=== PATIENT | female | born 1970 | race Caucasian/White ===

== ENCOUNTER → 2016-09-09 08:33 | Outpatient (CLI) | payer BC | END | disposition home or self-care (01) | LOC: D.RAD 09-07 09:30 | DX: K27.9 Peptic ulcer, site unspecified, unspecified as acute or chronic, without hemorrhage or perforation (principal) ==

== ENCOUNTER 2016-10-07 06:30 | Day surgery (SDC) | payer BC ==
[2016-10-06 10:05] LABS: HEMATOCRIT 46.1 % (36.0-48.0); HEMOGLOBIN 15.4 g/dL (12-16); MCH 29.1 pg (26.0-34.0); MCHC 33.4 g/dL (31.0-37.0); MEAN PLATELET VOLUME 11.3 fL (7.4-10.4); RBC 5.3 10x6/uL (4.00-5.40); RDW 13.4 % (11.5-14.5); WBC 6.6 10x3/uL (4.8-10.8)
[2016-10-06 10:12] LABS: ANION GAP 8.9 mmol/L (8-16); CALCIUM 9.6 mg/dL (8.5-10.1); CARBON DIOXIDE 32.3 mmol/L (21.0-32.0); CREATININE - SERUM 0.9 mg/dL (0.6-1.3); POTASSIUM - SERUM 4.2 mmol/L (3.5-5.1)
[~2016-10-07] VITALS: Ht 160 cm; Wt 76.2 kg
[~2016-10-07 06:30] MED LIST: CORGARD20 MG PO; DEXILANT60 MG PO; HYDROCHLOROTHIA50 MG PO; K-DUR20 MEQ PO; PRAVACHOL40 MG PO; XANAX0.25 MG PO
[2016-10-07 08:32] VITALS: BP 105/73; Ht 160 cm; Wt 76.2 kg
[2016-10-07] MEDS ORDERED: HYDROCODON-ACE1 EAC7 PO (11:16)
--- NOTE | 2016-10-07 15:52 | NUR ---
1430--PT VOIDS WITHOUT DIFFICULTY, IV DC'D. CHERI PEREZ 1446--DISCHARGE INSTRUCTIONS AND PRESCRIPTION FOR PAIN MEDS GIVEN, PT VERBALIZES UNDERSTANDING. PT OFF UNIT VIA WC. CHERI PEREZ
--- NOTE | 2016-10-07 19:25 | OP ---
PATIENT NAME: LISA DUGAN MEDICAL RECORD: [id number] :68 LOCATION:D[facility] ADMISSION DATE: SURGEON: ARA CONDE MD DATE OF OPERATION: 10/07/2016 SURGEON: Ara Conde MD PREOPERATIVE DIAGNOSES: 1. Calculous of the gallbladder without cholecystitis. 2. Right upper quadrant pain. 3. Gastroesophageal reflux disease. POSTOPERATIVE DIAGNOSES: 1. Calculous of the gallbladder without cholecystitis. 2. Right upper quadrant pain. 3. Gastroesophageal reflux disease. PROCEDURE PERFORMED: Laparoscopic cholecystectomy. ANESTHESIA: General. COMPLICATIONS: None. SPECIMENS: Gallbladder. Case was clean contaminated. ESTIMATED BLOOD LOSS: 20 cc. OPERATIVE COURSE: After consent was obtained, the patient was taken to the operating room and placed in the supine position on the operating table. Next, general anesthesia was given via endotracheal intubation after a timeout was taken to confirm the correct patient and procedure. The abdomen was then prepped and draped in typical sterile fashion. Local anesthetic was injected just above the umbilicus. A stab incision was made with 11-blade scalpel. Using a 5-mm bladeless optical trocar, the abdomen was entered under direct laparoscopic vision. Adequate pneumoperitoneum was achieved. The abdominal cavity was inspected. No evidence of bowel injury. No evidence of bleeding. At this time, the patient was placed in the steep reverse Trendelenburg position. All remaining trocars were then placed after the administration of local anesthetic, two 5-mm trocars in the right upper quadrant and 11-mm trocar in the subxiphoid position. The fundus of the gallbladder was then grasped and retracted cephalad. The infundibulum was grasped and retracted laterally. The peritoneum was incised using electrocautery. Blunt dissection was performed until the critical view was obtained. The cystic duct lateral, cystic artery medial, 3 clips were placed in the proximal cystic duct, 1 clip distal and 2 clips were placed in the proximal cystic artery. The duct and artery were then transected with laparoscopic Metzenbaum scissors. The main portion of the gallbladder was then dissected off the liver bed using electrocautery. Once complete, it was grasped with the tenaculum and removed through the 11-mm trocar and sent for permanent pathology. At this time, the operative field was copiously irrigated and suctioned. Careful attention was paid to the liver bed for hemostasis, which was obtained using electrocautery. The clips were inspected. The cystic duct had [address] in the cystic duct, artery had [address] At this time, the abdominal cavity was copiously irrigated OPERATIVE REPORT [id number] LISA DUGAN and suctioned the remaining portion. The abdominal cavity was inspected. No evidence of bowel injury. No evidence of bleeding. No evidence of bile leak. Next, our remaining instruments were removed. The abdomen was desufflated. Trocars removed. Skin was closed with 4-0 Monocryl, Mastisol and Steri-Strips. At the end of the case, all needle and instrument counts were correct. No complications occurred. The patient was extubated and transferred to the PACU in stable condition. TRANSINT:[id number] Voice Confirmation ID: [id number] DOCUMENT ID: [id number] ARA CONDE MD at 1925 CC: [id number] DICTATION DATE: 10/07/16 1115 PRESS TENDER LONG GOODS: 10/07/16 1740 [facility] 10/07/16 [facility] [address] [place] [address]
== END 2016-10-07 14:45 | disposition home or self-care (01) ==
LOC: D.OPS 06:30 → D.PAN 10:00 → D.OPS 10:00
PROVIDERS: Anesthesiology
DX: K80.10 Calculus of gallbladder with chronic cholecystitis without obstruction (principal); K21.9 Gastro-esophageal reflux disease without esophagitis

== ENCOUNTER 2016-11-06 03:49 | Emergency (ER) | payer BC ==
[2016-10-07 08:32] VITALS: BMI 29.8
[~2016-11-06 03:49] MED LIST changes: +HYDROCODON-ACE1 EAC7 PO
[2016-11-06 04:37] LABS: APPEARANCE CLEAR (CLEAR); BILIRUBIN NEGATIVE (NEGATIVE); COLOR YELLOW (YELLOW); GLUCOSE NEGATIVE (NEGATIVE); KETONE NEGATIVE (NEGATIVE); LEUKOCYTE ESTERASE NEGATIVE (NEGATIVE); NITRITE NEGATIVE (NEGATIVE); PROTEIN NEGATIVE (NEGATIVE); SPECIFIC GRAVITY 1.015 (1.005-1.020); UROBILINOGEN NORMAL (NORMAL)
[2016-11-06 04:37] LABS: BASOPHILS 0.3 % (0-2); EOSINOPHILS 6.6 % (0-7); HEMOGLOBIN 14.8 g/dL (12-16); IMMATURE GRANULOCYTES 0.3 % (0-5); LYMPHOCYTES 22.2 % (15-50); MCHC 33.6 g/dL (31.0-37.0); MCV 86.3 fL (80.0-100.0); MEAN PLATELET VOLUME 11.2 fL (7.4-10.4); MONOCYTES 7.2 % (2-11); NEUTROPHILS 63.4 % (40-80); PLATELET COUNT 181 10x3/uL (130-400); RDW 13.3 % (11.5-14.5); WBC 9.3 10x3/uL (4.8-10.8)
[2016-11-06 04:41] LABS: AMYLASE - SERUM 46 U/L (25-115); LIPASE 176 U/L (73-393)
[2016-11-06 05:04] LABS: ALBUMIN 3.8 g/dL (3.4-5.0); ANION GAP 13.2 mmol/L (8-16); BILIRUBIN - TOTAL 0.29 mg/dL (0.2-1.3); CALCIUM 9.3 mg/dL (8.5-10.1); CARBON DIOXIDE 25.6 mmol/L (21.0-32.0); CREATININE - SERUM 0.9 mg/dL (0.6-1.3); MAGNESIUM - SERUM 1.9 mg/dL (1.8-2.4); POTASSIUM - SERUM 3.8 mmol/L (3.5-5.1); PROTEIN - SERUM 7.2 g/dL (6.4-8.2)
== END 2016-11-06 05:50 | disposition home or self-care (01) ==
LOC: D.ER 03:49
PROVIDERS: Emergency Medicine
DX: R10.9 Unspecified abdominal pain (principal); I10 Essential (primary) hypertension

== ENCOUNTER 2016-11-15 11:06 | Inpatient (IN) | payer BC ==
[~2016-11-15] VITALS: Ht 162.6 cm; Wt 70.3 kg
[2016-11-15 11:52] LABS: BASOPHILS 0.3 % (0-2); EOSINOPHILS 2.9 % (0-7); HEMATOCRIT 47.4 % (36.0-48.0); HEMOGLOBIN 16.3 g/dL (12-16); IMMATURE GRANULOCYTES 0.3 % (0-5); LYMPHOCYTES 15.7 % (15-50); MCH 29.3 pg (26.0-34.0); MCHC 34.4 g/dL (31.0-37.0); MCV 85.1 fL (80.0-100.0); MEAN PLATELET VOLUME 10.7 fL (7.4-10.4); MONOCYTES 5.1 % (2-11); NEUTROPHILS 75.7 % (40-80); PLATELET COUNT 226 10x3/uL (130-400); RBC 5.57 10x6/uL (4.00-5.40); RDW 13.3 % (11.5-14.5)
[2016-11-15 14:28] LABS: ALBUMIN 4.2 g/dL (3.4-5.0); ANION GAP 13.8 mmol/L (8-16); BILIRUBIN - TOTAL 0.47 mg/dL (0.2-1.3); CALCIUM 9.6 mg/dL (8.5-10.1); CARBON DIOXIDE 30.1 mmol/L (21.0-32.0); CREATININE - SERUM 0.9 mg/dL (0.6-1.3); POTASSIUM - SERUM 3.9 mmol/L (3.5-5.1); PROTEIN - SERUM 7.7 g/dL (6.4-8.2)
[2016-11-15 19:00] VITALS: BP 119/65
[2016-11-15] MEDS ORDERED: NORCO 7.5/325 T1 TA1 PO (21:02)
[2016-11-16] VITALS: BP 116/77
[2016-11-16 04:00] VITALS: BP 116/72
[2016-11-16 05:33] LABS: BASOPHILS 0.2 % (0-2); EOSINOPHILS 2.1 % (0-7); HEMATOCRIT 41.4 % (36.0-48.0); HEMOGLOBIN 13.7 g/dL (12-16); IMMATURE GRANULOCYTES 0.2 % (0-5); MCH 28.8 pg (26.0-34.0); MCHC 33.1 g/dL (31.0-37.0); MONOCYTES 8.5 % (2-11); PLATELET COUNT 206 10x3/uL (130-400); RBC 4.76 10x6/uL (4.00-5.40); RDW 13.5 % (11.5-14.5)
[2016-11-16 05:39] LABS: WBC 8.2 10x3/uL (4.8-10.8)
[2016-11-16 05:45] LABS: CALC OSMOLALITY 281 mosm/kg (275-300); CALCIUM 8.9 mg/dL (8.5-10.1); CARBON DIOXIDE 29.8 mmol/L (21.0-32.0); CHLORIDE - SERUM 104 mmol/L (98-107); CREATININE - SERUM 0.8 mg/dL (0.6-1.3); GLUCOSE 105 mg/dL (74-106); POTASSIUM - SERUM 3.7 mmol/L (3.5-5.1); SODIUM 141 mmol/L (136-145); UREA NITROGEN 15 mg/dL (7-18); eGFR NON AFRICAN AMERICAN 81 mL/min (90-120)
[2016-11-16 06:47] LABS: ERYTHROCYTE SEDIMENTATION RATE 6 mm/hr (0-20)
--- NOTE | 2016-11-16 07:50 | NUR ---
SITTING UP, DENIES NEEDS, REQUESTED TO BE UNHOOKED FROM IV TO SHOWER, BED LOWEST POSITION, CALL LIGHT IN REACH, WILL CONTINUE TO MONITOR
[2016-11-16 10:16] VITALS: BP 105/62
[2016-11-16 12:09] VITALS: BP 110/77
--- NOTE | 2016-11-16 14:29 | NUR ---
VISITING WITH COMPANY. DENIES ANY NEEDS AT THIS TIME.
[2016-11-16 15:25] VITALS: Ht 162.6 cm; Wt 70.3 kg
[2016-11-16 15:57] VITALS: BP 97/59
[2016-11-16 19:00] VITALS: BP 110/66
[2016-11-17] VITALS: BP 98/61
[2016-11-17 04:00] VITALS: BP 121/65
--- NOTE | 2016-11-17 06:02 | NUR ---
PT HAS BEEN RESTING THIS SHIFT WITH NO GAS NOTED OR VOICED. STATES HAS NOT USED SUPERVISING NURSE AT ALL-NO PAIN. CALL LIGHT IN REACH AND FAMILY MEMBER AT BEDSIDE
[2016-11-17 06:05] LABS: CALC OSMOLALITY 286 mosm/kg (275-300); CALCIUM 8.2 mg/dL (8.5-10.1); CARBON DIOXIDE 27.5 mmol/L (21.0-32.0); CHLORIDE - SERUM 109 mmol/L (98-107); CREATININE - SERUM 0.8 mg/dL (0.6-1.3); GLUCOSE 114 mg/dL (74-106); POTASSIUM - SERUM 3.5 mmol/L (3.5-5.1); SODIUM 144 mmol/L (136-145); eGFR NON AFRICAN AMERICAN 81 mL/min (90-120)
[2016-11-17 06:06] LABS: BASOPHILS 0.2 % (0-2); EOSINOPHILS 4.7 % (0-7); HEMATOCRIT 39.9 % (36.0-48.0); IMMATURE GRANULOCYTES 0.2 % (0-5); LYMPHOCYTES 30.4 % (15-50); MCH 28.6 pg (26.0-34.0); MCHC 32.6 g/dL (31.0-37.0); MCV 87.9 fL (80.0-100.0); MEAN PLATELET VOLUME 10.8 fL (7.4-10.4); MONOCYTES 9.1 % (2-11); NEUTROPHILS 55.4 % (40-80); PLATELET COUNT 174 10x3/uL (130-400); RBC 4.54 10x6/uL (4.00-5.40); RDW 13.5 % (11.5-14.5)
[2016-11-17 06:10] LABS: UREA NITROGEN 9 mg/dL (7-18)
[2016-11-17 06:28] LABS: WBC 5.3 10x3/uL (4.8-10.8)
--- NOTE | 2016-11-17 07:00 | NUR ---
PT REC'D FROM [facility]. RESTING IN BED WATCHING TV. AAOX4. NO COMPLAINTS OF PAIN. BOWEL SOUNDS HYPOACTIVE X4 QUADRANTS. AWAITING STOOL SPECIMEN. EXPLAINED TO PT TO CALL ONCE SHE HAD ONE AND WE WOULD COLLECT IT. NO QUESTIONS OR CONCERNS VOICED AT THIS TIME. PIV TO R AC FREE OF REDNESS AND SWELLING. BED LOW, CALL LIGHT IN REACH, DENEIS NEEDS. CPOC.
[2016-11-17 08:24] VITALS: BP 121/64
[2016-11-17 09:15] LABS: ANA REFLEX - DIRECT Negative (Negative)
--- NOTE | 2016-11-17 10:16 | NUR ---
NEW BAG OF FLUID HUNG PER JUL. PROBIOTIC ADMINISTERED PER MAR WELL. NO COMPLAINTS. BED LOW, CALL LIGHT IN REACH, DENIES NEEDS. CPOC.
--- NOTE | 2016-11-17 12:37 | NUR ---
SITTING UP IN BED WATCHING TV. DENIES NEEDS OR PAIN AT THIS TIME. BED LOW, CL IN REACH.
[2016-11-17 12:40] VITALS: BP 127/80
--- NOTE | 2016-11-17 13:11 | NUR ---
Patient Name: LISA DUGAN Admission Status: ER Accout number: [id number] Admission Date: 11-15-2016 : 1970 Admission Diagnosis:NAUSEA WITH VOMITING, UNSPECIFIED Attending: RUBI Current LOS: 2 Anticipated DC Date: 11-18-2016 Planned Disposition: Home Primary Insurance: [employer] TRUE BLUE PPO Discharge Planning Comments: CM MET WITH PATIENT AND SPOUSE (TORIE) REGARDING D/C NEEDS AND PLANS. PATIENT STATED HER SPOUSE WILL DRIVE HER HOME AT DISCHARGE. PATIENT STATED THERE ARE NO STEPS TO ENTER HOME BUT THERE ARE 2 STAIRCASES W/RAILS INSIDE HOME. PATIENT IS INDEPENDENT WITH HER CARE AND HAS NO DME AT HOME. PATIENTS PCP IS DR. ZIMMERMAN AND PHARMACY IS [facility]. PATIENT DID NOT WANT HOME HEALTH AT DISCHARGE. CM WILL CONTINUE TO FOLLOW PATIENT WITH D/C NEEDS AND PLANS. PCP DR. ZIMMERMAN [facility]- [phone] TORIE (SPOUSE) [phone] Planning Intern: Linda Marroquin Is the patient Alert and Oriented? Yes 0 * How many steps to enter\exit or inside your home? 2 FLIGHTS 0 * PCP DR. ZIMMERMAN 0 * Pharmacy [facility] 0 * Preadmission Environment Home with Family 0 * ADLs Independent 0 * List name and contact numbers for known caregivers / representatives who currently or will assist patient after discharge: TORIE (SPOUSE) [phone] 0 * Community resources currently utilized None 0 * Additional services required to return to the preadmission environment? Yes 0 * Can the patient safely return to the preadmission environment? Yes 0 * Has this patient been hospitalized within the prior 30 days at any hospital? No 0 Grand Total: 0
--- NOTE | 2016-11-17 16:00 | NUR ---
IV TO R AC DC'D DUE TO SWELLING AND LEAKAGE AROUND INSERTION SITE. DC'D WIHT CATHETER INTACT. PRESSURE AND DRESSING APPLIED. WILL ATTEMPT TO RESITE.
[2016-11-17 16:39] VITALS: BP 126/74
--- NOTE | 2016-11-17 17:30 | NUR ---
X3 ATTEMPTS TO RESITE PIV. UNSUCCESSFUL. NIGHT NURSE WILL BE NOTIFIED.
[2016-11-17 19:00] VITALS: BP 145/87
--- NOTE | 2016-11-17 19:02 | NUR ---
Received patient ambulating in hallway with family. Denies pain or discomfort at this time. Alert and oriented x 4, has no PIV. Offgoing staff reported PIV had become symptomatic and was removed. Day shift have attempted x 3 to restart PIV but each time have been unsuccessful. Next IV antibiotic and protonix is due @0215. Denies need for IV Dilaudid at this time.
--- NOTE | 2016-11-17 20:10 | NUR ---
PIV #20 has been resited in right wrist, IV infusing of D5 1/2NS & 10KCl, no signs of infection or infiltration at this time.
--- NOTE | 2016-11-17 20:30 | NUR ---
PIV that had been resited by Charge Nurse is now leaking sanguinous fluid aroun insertion site. Patient is now complaining of severe pain at site. A second RN came to evaluate site, has infiltrated, PIV removed, catheter intact.
--- NOTE | 2016-11-17 23:00 | NUR ---
Have been unable to resite PIV. Notified Huc Ob of same and aware that patient has no IV medication due until 214. Patient continues to deny pain or discomfort, continues to deny need to have Dilaudid POWDER COMPOUNDER running at this time.
[2016-11-18] VITALS (8 sets, daily range): BP systolic 110–131; BP diastolic 67–89
--- NOTE | 2016-11-18 04:05 | NUR ---
It Security Engineer is sending a nurse from ICU to resite PIV. Patient is a hard stick and wants to only be stuck one more time "by an expert".
[2016-11-18 06:18] LABS: BASOPHILS 0.3 % (0-2); EOSINOPHILS 5.2 % (0-7); HEMATOCRIT 39.7 % (36.0-48.0); IMMATURE GRANULOCYTES 0.3 % (0-5); LYMPHOCYTES 30.5 % (15-50); MCH 28.7 pg (26.0-34.0); MCHC 32.7 g/dL (31.0-37.0); MCV 87.6 fL (80.0-100.0); MEAN PLATELET VOLUME 11.1 fL (7.4-10.4); MONOCYTES 8.2 % (2-11); NEUTROPHILS 55.5 % (40-80); PLATELET COUNT 180 10x3/uL (130-400); RBC 4.53 10x6/uL (4.00-5.40); RDW 13.5 % (11.5-14.5); WBC 5.7 10x3/uL (4.8-10.8)
[2016-11-18 06:55] LABS: CALC OSMOLALITY 286 mosm/kg (275-300); CALCIUM 8.9 mg/dL (8.5-10.1); CARBON DIOXIDE 26.3 mmol/L (21.0-32.0); CHLORIDE - SERUM 109 mmol/L (98-107); CREATININE - SERUM 0.7 mg/dL (0.6-1.3); GLUCOSE 100 mg/dL (74-106); POTASSIUM - SERUM 3.7 mmol/L (3.5-5.1); SODIUM 145 mmol/L (136-145); UREA NITROGEN 8 mg/dL (7-18); eGFR NON AFRICAN AMERICAN > 90 mL/min (90-120)
--- NOTE | 2016-11-18 07:00 | NUR ---
PT REC'D FROM [facility]. RESTING IN BED WATCHING TV AT BEDSIDE. AAOX4. NO IV ACCESS CURRENTLY. ANA NUNN IV ACCESS NURSE, AWARE. BOWEL SOUNDS HYPOACTIVE X4 QUADRANTS. NO COMPLAINTS OF PAIN. BED LOW, CALL LIGHT IN REACH, DENIES NEEDS. CPOC.
--- NOTE | 2016-11-18 08:30 | NUR ---
ARLINE RN IV ACCESS NURSE, AT BEDSIDE. NEW IV RESITED TO L HAND WITH 22 GUAGE CATHETER. VERY MUCH APPRECIATE HER HELP!
--- NOTE | 2016-11-18 08:45 | NUR ---
GI LAB ON PHONE TO LET ME KNOW WHEN EGD WOULD BE APPROXIMATELY. STATED I COULD PRE-OP AROUND 9.
--- NOTE | 2016-11-18 08:50 | NUR ---
PT PREOP'D AT THIS TIME. NEW TUBING HUNG. ASSISTED WITH PUTTING ON GOWN. BED LOW, CALL LIGHT IN REACH, DENIES NEEDS. CPOC.
--- NOTE | 2016-11-18 11:38 | NUR ---
PT REC'D BACK TO ROOM FROM GI LAB. AAOX4. NO COMPLAINTS OF PAIN. VSS. AND MOTHER AT BEDSIDE. DILAUDID TOPOGRAPHICAL SURVEYOR DC'D. BED LOW, CALL LIGHT IN REACH, DENIES NEEDS. CPOC.
--- NOTE | 2016-11-18 13:33 | NUR ---
DR. MEJÍA AT BEDSIDE DISCUSSING POC.
[2016-11-18] MEDS ORDERED: TUMS X-STR300 MG PO (13:38)
[2016-11-18] MEDS ORDERED: NORCO 7.5/325 T1 TA1 PO (13:38)
--- NOTE | 2016-11-18 13:55 | NUR ---
PT RESTING IN BED WITH NO COMPLAINTS OF PAIN OR DISCOMFORT AT THIS TIME. PT AWAITING DISCHARGE. BED IN LOW POSITION AND CALL LIGHT WITHIN REACH. WILL CONTINUE TO MONITOR.
--- NOTE | 2016-11-18 14:56 | NUR ---
CM REASSESSMENT NOTE: PATIENT IS DISCHARGING HOME TODAY/ DRIVING HER. PATIENT REF. HOME HEALTH AND HAD NO OTHER NEEDS FOR DISCHARGE.
--- NOTE | 2016-11-18 15:35 | NUR ---
DISCHARGE INSTRUCTIONS DISCUSSED WITH PT AND FAMILY AT THIS TIME. PIV TO R AC DC'D WITH CATHETER INTACT. NO QUESTIONS OR CONCERNS VOICED. EXPLAINED THAT PRESCRIPTIONS HAD ALREADY BEEN CALLED IN. ESCORTED OUT VIA WC.
== END 2016-11-18 15:36 | disposition home or self-care (01) | DRG 392 ==
LOC: D.ER 11:06 → D.MS 18:01
PROVIDERS: Emergency Medicine; Family Medicine; Internal Medicine Gastroenterology; Surgery; ADMIT Family Medicine
PROC: 0DB68ZX Excision of Stomach, Via Natural or Artificial Opening Endoscopic, Diagnostic (ICD-10-PCS; 2016-11-18)
PROC: 0DB48ZX Excision of Esophagogastric Junction, Via Natural or Artificial Opening Endoscopic, Diagnostic (ICD-10-PCS; 2016-11-18)
PROC: 0DB98ZX Excision of Duodenum, Via Natural or Artificial Opening Endoscopic, Diagnostic (ICD-10-PCS; principal; 2016-11-18 09:30)
DX: K52.9 Noninfective gastroenteritis and colitis, unspecified (principal); K22.10 Ulcer of esophagus without bleeding; K22.4 Dyskinesia of esophagus; I10 Essential (primary) hypertension; K21.0 Gastro-esophageal reflux disease with esophagitis; K29.60 Other gastritis without bleeding

== ENCOUNTER → 2017-01-06 08:48 | Outpatient (CLI) | payer BC ==
[2016-11-16 15:25] VITALS: BMI 26.6
[~2017-01-06 08:48] MED LIST changes: +NORCO 7.5/325 T1 TA1 PO; +TUMS X-STR300 MG PO
== END | disposition home or self-care (01) ==
LOC: D.RAD 08:48
DX: R10.13 Epigastric pain (principal)

== ENCOUNTER 2017-03-10 05:11 | Day surgery (SDC) | payer BC ==
[2017-03-09 15:06] LABS: HEMATOCRIT 42.2 % (36.0-48.0); HEMOGLOBIN 14.4 g/dL (12-16); MCHC 34.1 g/dL (31.0-37.0); MCV 85.1 fL (80.0-100.0); MEAN PLATELET VOLUME 10.6 fL (7.4-10.4); RBC 4.96 10x6/uL (4.00-5.40); RDW 13.2 % (11.5-14.5); WBC 6.4 10x3/uL (4.8-10.8)
[2017-03-09 16:16] LABS: ANION GAP 11.5 mmol/L (8-16); CALCIUM 9.1 mg/dL (8.5-10.1); CARBON DIOXIDE 31.5 mmol/L (21.0-32.0); CREATININE - SERUM 0.9 mg/dL (0.6-1.3)
[~2017-03-10 05:11] MED LIST changes: +PEPCID40 MG PO; +ZANTAC300 MG PO
[2017-03-10 08:28] VITALS: BP 112/75; BMI 29.9
--- NOTE | 2017-03-10 13:30 | NUR ---
RECIEVED TO ROOM 2213 FROM RECOVERY ROOM VIA BED. IV TO R WRIST PATENT. ABDOMINAL INCISIONS X 5 WITH STERI STRIPS INTACT. SCD'S IN USE TO BILAT LEGS. O2 4L NC IN USE. DROWSY BUT AWAKENS EASILY TO VERBAL STIMULI.
[2017-03-10 13:32] VITALS: BP 136/71
[2017-03-10 13:35] VITALS: BP 136/71; BMI 29.9
--- NOTE | 2017-03-10 13:48 | NUR ---
CITY EDITOR MORPHINE 1-10-10 SETUP FOR PAIN CONTROL. FAMILY AT BEDSIDE.
--- NOTE | 2017-03-10 16:35 | NUR ---
AMBULATED IN HALLWAY WITH STAFF AROUND NURSE'S UNIT. INCENTIVE SPIROMETRY GIVEN TO PATIENT WITH INSTRUCTION.
--- NOTE | 2017-03-10 17:00 | NUR ---
AMBULATING IN HALLWAY WITH .
--- NOTE | 2017-03-10 18:22 | NUR ---
TOLERATING CLEAR LIQUID DIET AT THIS TIME. DENIES ANY NEEDS AT PRESENT.
[2017-03-10 20:00] VITALS: BP 121/86
--- NOTE | 2017-03-10 20:05 | NUR ---
REC'D. WALKING WITH IN HALLWAY TOLERATING WELL.WILL CONTINUE TO MONITOR FOR ANY CHGES. AND FOLLOW CURRENT PLAN OF CARE.
[2017-03-11] VITALS: BP 114/71
--- NOTE | 2017-03-11 02:00 | NUR ---
PT RESTING IN BED WITH NO DISTRESS. RESPIRATIONS EVEN AND UNLABORED. SIDE RAILS X 2. BED LOW. CALL LIGHT IN REACH.
[2017-03-11 04:00] VITALS: BP 110/56
[2017-03-11 05:15] LABS: BASOPHILS 0.1 % (0-2); EOSINOPHILS 0.3 % (0-7); HEMATOCRIT 36.3 % (36.0-48.0); HEMOGLOBIN 12.2 g/dL (12-16); IMMATURE GRANULOCYTES 0.2 % (0-5); LYMPHOCYTES 20.5 % (15-50); MCH 29.4 pg (26.0-34.0); MCHC 33.6 g/dL (31.0-37.0); MEAN PLATELET VOLUME 10.6 fL (7.4-10.4); MONOCYTES 6.6 % (2-11); NEUTROPHILS 72.3 % (40-80); PLATELET COUNT 164 10x3/uL (130-400); RBC 4.15 10x6/uL (4.00-5.40); RDW 13.6 % (11.5-14.5)
[2017-03-11 05:21] LABS: MCV 87.5 fL (80.0-100.0); WBC 8.8 10x3/uL (4.8-10.8)
[2017-03-11 05:39] LABS: ALBUMIN 3.1 g/dL (3.4-5.0); ALKALINE PHOSPHATASE 76 U/L (46-116); ALT (SGPT) 92 U/L (10-68); BILIRUBIN - TOTAL 0.32 mg/dL (0.2-1.3); CALC OSMOLALITY 282 mosm/kg (275-300); CALCIUM 8.4 mg/dL (8.5-10.1); CARBON DIOXIDE 29.7 mmol/L (21.0-32.0); CHLORIDE - SERUM 106 mmol/L (98-107); CREATININE - SERUM 0.8 mg/dL (0.6-1.3); GLUCOSE 107 mg/dL (74-106); PROTEIN - SERUM 5.8 g/dL (6.4-8.2); SODIUM 142 mmol/L (136-145); UREA NITROGEN 12 mg/dL (7-18); eGFR NON AFRICAN AMERICAN 81 mL/min (90-120)
[2017-03-11 05:41] LABS: POTASSIUM - SERUM 3.7 mmol/L (3.5-5.1)
--- NOTE | 2017-03-11 07:50 | NUR ---
ASSESSMENT COMPLETE. IV TO R WRIST PATENT. LR INFUSING AT 150 CC/HR VIA PUMP. FRENCH TUTOR MORPHINE 1-10-10 IN USE FOR PAIN CONTROL. ABDOMINAL INCISIONS X 5 WITH STERI STRIPS INTACT. BRUISING AND SWELLING NOTED AROUND INCISIONS. DENIES ANY COMPLAINT OF NAUSEA. TOLERATING LIQUIDS. SCD'S IN USE TO BILAT LEGS. DENIES ANY NEEDS AT THIS TIME.
--- NOTE | 2017-03-11 08:15 | OP ---
PATIENT NAME: LISA DUGAN MEDICAL RECORD: [id number] :66 LOCATION:[id number] ADMISSION DATE: SURGEON: ARA CONDE MD DATE OF OPERATION: 03/10/2017 SURGEON: Ara Conde MD PREOPERATIVE DIAGNOSES: 1. Gastroesophageal reflux disease. 2. Hiatal hernia. POSTOPERATIVE DIAGNOSES: 1. Gastroesophageal reflux disease. 2. Hiatal hernia. PROCEDURE PERFORMED: 1. Laparoscopic hiatal hernia repair. 2. Laparoscopic Vitor fundoplication. ANESTHESIA: General. COMPLICATIONS: None. SPECIMENS: None. Case was clean. OPERATIVE COURSE: After consent was obtained, the patient was taken to the operating room and placed in the supine position on the operating table. Next, general anesthesia was given via endotracheal intubation after a timeout was performed that confirmed the correct patient and procedure. The abdomen was prepped and draped in typical sterile fashion. Local anesthetic was injected just above the umbilicus. A stab incision was made with 11-blade scalpel. Using a 10-mm bladeless optical trocar, the abdomen was entered under direct laparoscopic vision. Adequate pneumoperitoneum was achieved. The abdominal cavity was inspected. No evidence of bowel injury. No evidence of bleeding. The patient was then placed in the steep reverse Trendelenburg position. All remaining trocars were then placed; 12-mm trocar and 5-mm trocar in the right lateral quadrant and two 5-mm trocars in the left lateral quadrant and Vladislav retractor in the subxiphoid position. All were placed after the administration of local anesthetic under direct laparoscopic vision. The patient was placed in steep reverse Trendelenburg position. There was a hiatal hernia noted with the upper portion of the GE junction 1 to 2 cm above the hiatus. Dissection started along the cardia on the greater curve of the stomach. The short gastrics were taken with Harmonic scalpel. Dissection continued to the level of the left crura. The hernia sac was incised. The left crura was skeletonized using the Harmonic scalp. Next, the gastrohepatic ligament was opened using the Harmonic scalpel. Dissection continued to the right crura. The right crura was skeletonized using the Harmonic scalpel. The hernia sac was identified and incised. The hernia sac was then circumferentially dissected off the GE junction. The mediastinum was dissected until approximately 6 cm of intraabdominal esophagus was obtained. Yves was applied into the mediastinum. The GE junction fat pad was dissected off the GE junction. The GE junction was clearly identified. The hiatus was then closed using a 0 Stratafix polypropylene suture. Next, the cardia of the stomach was passed posterior to OPERATIVE REPORT [id number] LISA DUGAN Razia the GE junction. A loose floppy Vitor fundoplication was performed. It was sewn with 2-0 PDS plus Stratafix. At this time, the abdominal cavity was irrigated. The scope was copiously irrigated and suctioned. Careful attention was paid to hemostasis. The abdominal cavity was copiously irrigated and suctioned. There was no evidence of bowel injury and no evidence of bleeding. At this time, the 10-mm and 12-mm trocars were removed. The port sites were closed with an 0 Vicryl suture on a Sang-Mark suture passer under direct laparoscopic vision. Next, all remaining instruments were removed. The abdomen was desufflated. Trocars were removed. Vladislav liver retractor was removed under direct laparoscopic vision. Skin incisions were then closed with 4-0 Monocryl, Mastisol and Steri-Strips. At the end of the case, all needle and instrument counts were correct. No complications occurred. The patient was extubated and transferred to the PACU in stable condition. TRANSINT:[id number] Voice Confirmation ID: [id number] DOCUMENT ID: [id number] ARA CONDE MD at 0815 CC: [id number] DICTATION DATE: 03/10/17 1223 CIVIL DESIGNER: 03/10/17 1323 [facility] [address] [place] [id number]
[2017-03-11] MEDS ORDERED: HYDROCODON-ACE1 EAC7 PO (08:25)
[2017-03-11 09:03] VITALS: BP 129/81
--- NOTE | 2017-03-11 11:20 | NUR ---
IV REMOVED. CATHETER TIP INTACT. DISCHARGE TEACHING GIVEN TO PATIENT. SCRIPT FOR [place]CO GIVEN TO PATIENT. DIETARY INSTRUCTION SHEETS GIVEN TO PATIENT. VOICED UNDERSTANDING.
--- NOTE | 2017-03-11 11:50 | NUR ---
DC'D HOME WITH . ESCORTED TO VEHICLE BY VOLUNTEER VIA WC WITH BELONGINGS.
== END 2017-03-11 10:50 | disposition home or self-care (01) ==
LOC: D.MS 05:11 → D.OPS 05:11 → D.PAN 10:00 → D.OPS 10:00 → D.MS 12:40 → D.OPS 03-11 10:50
PROVIDERS: Anesthesiology; Surgery
DX: K21.9 Gastro-esophageal reflux disease without esophagitis (principal); K44.9 Diaphragmatic hernia without obstruction or gangrene; I10 Essential (primary) hypertension; Z79.899 Other long term (current) drug therapy; Z01.812 Encounter for preprocedural laboratory examination

== ENCOUNTER 2017-12-27 06:12 | Day surgery (SDC) | payer BC ==
[~2017-12-27] VITALS: Ht 162.6 cm; Wt 68.2 kg
[2017-12-27 07:05] VITALS: Ht 162.6 cm; Wt 68.2 kg
[2017-12-27 07:38] LABS: HEMATOCRIT 43.5 % (36.0-48.0); HEMOGLOBIN 14.9 g/dL (12-16); MCH 29.6 pg (26.0-34.0); MCHC 34.3 g/dL (31.0-37.0); MCV 86.5 fL (80.0-100.0); MEAN PLATELET VOLUME 11.1 fL (7.4-10.4); RBC 5.03 10x6/uL (4.00-5.40); RDW 13.7 % (11.5-14.5); WBC 7.9 10x3/uL (4.8-10.8)
== END 2017-12-27 10:30 | disposition home or self-care (01) ==
LOC: D.OPS 06:12
PROVIDERS: Anesthesiology
DX: R13.10 Dysphagia, unspecified (principal); Z01.812 Encounter for preprocedural laboratory examination

== ENCOUNTER → 2018-01-12 09:47 | Outpatient (CLI) | payer BC ==
[2017-12-27 07:05] VITALS: BMI 25.8
== END | disposition home or self-care (01) ==
LOC: D.RAD 09:30
DX: R13.10 Dysphagia, unspecified (principal); K21.9 Gastro-esophageal reflux disease without esophagitis